=== PATIENT | male | born 1975 | race Caucasian/White ===

== ENCOUNTER 2017-12-12 16:38 | Emergency (ER) | payer MEDICAID ==
[2017-12-12] MEDS ORDERED: 0.9 % SODIUM CHLORIDE 1,000 ML BAG IV ONE (17:19)
[2017-12-12] MEDS ORDERED: ONDANSETRON HCL IV 4 MG/2 ML VIAL IVP ONE (17:19)
--- NOTE | 2017-12-12 17:29 | Emergency Department Record ---
History of Present Illness - General Chief Complaint: Ingestion Stated Complaint: TOOK TO MUCH PRESCRIPTION Time Seen by Provider: 12/12/17 17:15 Source: Patient Mode of Arrival: Ambulatory Limitations: No limitations - History of Present Illness Initial Comments: The patient is here due to not feeling well for the last 11 hours. He accidentally took 120 mg of Methadone at 6 am today when he thought he was taking 15 mg. Since he has been mildly shakey, weak, nauseated and did vomit 3 times today. There was no attempt at suicide or self injury. The patient is on Methadone due to Narcotic addiction. MD Complaint: Other Onset/Timin -: Hour(s) Improves With: Nothing Worsens With: Nothing Associated Symptoms: Nausea, Vomiting - Related Data Home Medications Medication Instructions Recorded Confirmed Last Taken Methadone HCl 15 mg PO DAILY 12/12/17 12/12/17 Unknown Allergies Allergy/AdvReac Type Severity Reaction Status Date / Time No Known Drug Allergies Allergy Verified 12/12/17 17:13 Travel Screening - Travel/Exposure Within Last 30 Days Have you traveled within the last 30 days?: No Review of Systems Constitutional: Denies: Chills, Fever Eyes: Denies: Eye discharge ENT: Denies: Congestion Respiratory: Denies: Cough, Dyspnea Past Medical History - SOCIAL HISTORY Smoking Status: Never smoker Alcohol Use: Occasional Drug Use: None - RESPIRATORY Hx Respiratory Disorders: No - CARDIOVASCULAR Hx Cardio Disorders: No - NEURO Hx Neuro Disorders: No - GI Hx GI Disorders: No - Hx Genitourinary Disorders: No - ENDOCRINE Hx Endocrine Disorders: No - MUSCULOSKELETAL Hx Musculoskeletal Disorders: No - PSYCH Hx Psych Problems: No - HEMATOLOGY/ONCOLOGY Hx Hematology/Oncology Disorders: No Family Medical History Any Significant Family History?: No Physical Exam - General General Appearance: Alert, Oriented x3, Cooperative, No acute distress - Head Head exam: Atraumatic, Normocephalic, Normal inspection - Eye Eye exam: Normal appearance, PERRL, EOMI - ENT Throat exam: Normal inspection. negative: Tonsillar erythema, Tonsillar exudate - Neck Neck exam: Normal inspection, Full ROM. negative: Tenderness - Respiratory Respiratory exam: Normal lung sounds bilaterally. negative: Respiratory distress - Cardiovascular Cardiovascular Exam: Regular rate, Normal rhythm, Normal heart sounds - GI/Abdominal GI/Abdominal exam: Soft, Normal bowel sounds. negative: Tenderness - Extremities Extremities exam: Normal inspection, Full ROM, Normal capillary refill. negative: Tenderness - Back Back exam: Reports: Normal inspection - Neurological Neurological exam: Alert, Normal gait, Oriented X3, Other (Neg Drift and Rhomberb.). negative: Abnormal gait, Altered, Motor sensory deficit - Psychiatric Psychiatric exam: negative: Anxious Course Vital Signs 12/12/17 17:10 Temperature 97.9 F Pulse Rate 75 Respiratory 18 Rate Blood Pressure 140/76 Pulse Ox 99 - Reevaluation(s) Reevaluation #1: The patient is doing a lot better at this time. His nausea is improved and he is resting comfortably. 12/12/17 17:49 Reevaluation #2: The patient is doing very well at this time. He feels much better and denies any anxiety or shaking. The patient's speech is clear with no confusion, or dysarthria. The patient is able to stand with no ataxia. The patient will be hydrated in the ED for 2 more hours and then discharged to home if feeling well. 12/12/17 18:36 Reevaluation #3: I did discuss the patient's mild anemia and the need for F/U. 12/12/17 18:42 Medical Decision Making - Data Complexity MDM Data: Labs Ordered and/or Reviewed, EKG Ordered and/or Reviewed - Lab Data Result diagrams: 12/12/17 17:20 12/12/17 17:20 - EKG Data -: EKG Interpreted by Me EKG: No Acute Changes, Normal EKG Disposition Disposition: Discharge Clinical Impression: Methadone adverse reaction Qualifiers: Encounter type: initial encounter Qualified Code(s): T40.3X5A - Adverse effect of methadone, initial encounter Disposition: Home, Self-Care Condition: (2) Stable Instructions: Methadone (By mouth) Additional Instructions: Please use the Zofran if needed and drink plenty of fluids. Please restart your normal dosing in the AM. Return to the for any problems or new issues. Please see your PCP for recheck of your anemia when possible. Forms: Patient Portal Access Time of Disposition: 18:46 Quality - Quality Measures Quality Measures: N/A - Blood Pressure Screening View Details: Yes Does Patient Have Any of the Following: No Blood Pressure Classification: Hypertensive Reading Systolic Measurement: 140 Diastolic Measurement: 76 Screening for High Blood Pressure: < First Hypertensive BP, F/U Documented > [ [id number]] First Hypertensive Follow-up Interventions: Referral to alternative/primary care provider.
[2017-12-12 17:31] LABS: BASO % 0.5 % (0-6); EOS % 0.1 % (0-6); GRAN % 79.5 % (47-80); HEMOGLOBIN 12.7 gm/dl (14.0-18.0); LYMPH % 11.8 % (16-45); MEAN CELL VOLUME 97.1 fl (81-97); MEAN CORPUSCULAR HEMOGLOBIN 30.8 pg (27-33); MEAN CORPUSCULAR HGB CONC 31.8 g/dl (32-36); MEAN PLATELET VOLUME 7.8 fl (7.4-10.4); MONO % 8.1 % (0-9); PLATELET COUNT 204 K/uL (130-400); RED BLOOD COUNT 4.12 M/uL (4.40-5.70); RED CELL DISTRIBUTION WIDTH 12.8 % (11.5-14.5); WHITE BLOOD COUNT W/O DIFF 7.6 K/uL (4.2-12.2)
[2017-12-12 17:34] LABS: AMPHETAMINE SCREEN URINE NOT DETECTED; BARBITURATE SCREEN URINE NOT DETECTED; BENZODIAZEPINE SCREEN URINE NOT DETECTED; COCAINE SCREEN URINE NOT DETECTED; METHADONE SCREEN URINE DETECTED; METHAMPHETAMINE SCREEN NOT DETECTED; OPIATE SCREEN URINE NOT DETECTED; OXYCODONE SCREEN URINE NOT DETECTED; PHENCYCLIDINE SCREEN URINE NOT DETECTED; PROPOXYPHENE SCREEN URINE NOT DETECTED; THC SCREEN URINE NOT DETECTED; TRICYCLIC ANTIDEPRESSANT SCRN NOT DETECTED
[2017-12-12 17:45] LABS: ALB/GLOB RATIO 1.3 (1.1-1.8); ALBUMIN 4.5 g/dL (4.0-5.0); ALKALINE PHOSPHATASE 82 U/L (40-129); ALT/SGPT 26 U/L (<41); AST/SGOT 40 U/L (10.0-50.0); BLOOD UREA NITROGEN 12 mg/dL (6-20); CREATININE 0.8 mg/dL (0.7-1.2); EST GLOMERULAR FILTRATION RATE > 60 mL/min; GLUCOSE,RANDOM 108 mg/dL (74-109)
[2017-12-12 18:00] LABS: URINE APPEARANCE CLEAR; URINE BILIRUBIN NEGATIVE (NEGATIVE); URINE BLOOD TRACE-I (NEGATIVE); URINE COLOR YELLOW; URINE GLUCOSE (UA) NEGATIVE (NEGATIVE); URINE KETONE NEGATIVE (NEGATIVE); URINE LEUKOCYTE ESTERASE NEGATIVE (NEGATIVE); URINE NITRITE NEGATIVE (NEGATIVE); URINE PROTEIN NEGATIVE (NEGATIVE); URINE UROBILINOGEN 0.2 E.U./dL (0.20 - 1.00)
[2017-12-12 18:04] LABS: URINE WBC 0 - 2 (0-2/hpf)
[2017-12-12] MEDS ORDERED: 0.9 % SODIUM CHLORIDE 1000ML 1,000 ML IV ONE (18:18)
[2017-12-12] MEDS ORDERED: ONDANSETRON 4 MG ODT TABLET SL ONE (18:46)
== END 2017-12-12 20:09 | disposition home or self-care (01) ==
LOC: ER 16:38
DX: T40.2X5A Adverse effect of other opioids, initial encounter (principal); R11.2 Nausea with vomiting, unspecified; R53.1 Weakness
CPT/HCPCS: 99284 ×2; 96374; 96361; 85025; 80053; 81001; 80305; 93005; 93010; J2405; J7030